=== PATIENT | male | born 1965 | race Caucasian/White ===

== ENCOUNTER → 2020-07-23 | Outpatient (CLI) | payer OTHER, SELFPAY | END | disposition home or self-care (01) | LOC: LABSPEC 15:57 | PROVIDERS: Referring Provider Urology; Visit Provider Urology | DX: Z87.442 Personal history of urinary calculi (principal) | CPT/HCPCS: 82360 ==

== ENCOUNTER → 2020-09-23 15:42 | Outpatient (CLI) | payer OTHER, SELFPAY ==
[2020-09-23 18:39] LABS: Anion Gap 6 (5-15); BUN 11 mg/dL (7-18); BUN/Creat Ratio 14.2 RATIO (10-20); Calcium,Total 9.4 mg/dL (8.5-10.1); Chloride 105 mmol/L (98-107); Creatinine, Serum 0.78 mg/dL (0.70-1.30); EST Glomerular Filtration Rate 111 mL/min (>60); Est Glom Filt Rate - Afr Amer 135 mL/min (>60); Glucose 85 mg/dL (74-106); PSA,Total - Annual Screen 0.67 ng/mL (0.00-4.00); Potassium 3.6 mmol/L (3.5-5.1); Sodium Level 138 mmol/L (136-145)
[2020-09-24 08:36] LABS: PTHIN 75.3 pg/mL (18.4-80.1)
== END ==
PROVIDERS: Referring Provider Urology; Visit Provider Urology
DX: R82.994 Hypercalciuria (principal); Z12.5 Encounter for screening for malignant neoplasm of prostate
CPT/HCPCS: 36415; 80048; 83970; 84153; G0103

== ENCOUNTER → 2024-10-24 | Outpatient (CLI) | payer OTHER, SELFPAY ==
--- NOTE | 2024-10-24 10:52 | RAD_ITS ---
PROCEDURE: ABDOMEN SINGLE VIEW 10/24/2024 REASON FOR EXAM: CALCULUS OF KIDNEY TECHNIQUE: Single view abdomen. 2 total images to include the abdomen and pelvis COMPARISON: None available FINDINGS: A couple of calcific densities are seen over the right and left renal shadows which may represent intrarenal stones. An approximate 4 mm calcification to the right of the L3 transverse process, can not exclude possible right ureteral stone, clinically correlate. Incidental appearing pelvic phleboliths. No gaseous distention of bowel seen. RAD/Abdomen Single View IMPRESSION: A couple of calcific densities are seen over the right and left renal shadows w hich may represent intrarenal stones. An approximate 4 mm calcification to the right of the L3 transverse process, ca n not exclude possible right ureteral stone, clinically correlate. Reading Location: [id number]
== END | disposition home or self-care (01) ==
PROVIDERS: Referring Provider Nurse Practitioner; Visit Provider Nurse Practitioner
DX: N20.0 Calculus of kidney (principal)
CPT/HCPCS: 74018

== ENCOUNTER → 2024-10-25 | Outpatient (CLI) | payer OTHER, SELFPAY ==
--- NOTE | 2024-10-25 07:59 | EKG12_ITS ---
Test Reason : PREOP Blood Pressure : */* mmHG Vent. Rate : 78 BPM Atrial Rate : 78 BPM P-R Int : 150 ms QRS Dur : 90 ms QT Int : 378 ms P-R-T Axes : 31 10 22 degrees QTcB Int : 430 ms Normal sinus rhythm with sinus arrhythmia Normal ECG Confirmed by Scott Cifuentes ([id number]), supervising film or videotape editor TIMA SORIANO ([id number]) on 10/26/2024 9:35:42 AM Referred By: Aaron Santos Confirmed By: Scott Cifuentes
[2024-10-25 09:03] LABS: Hematocrit 44.8 % (40-54); Hemoglobin 15.1 g/dL (13.0-16.5); Mean Corp Hgb Conc 33.7 g/dL (32-36); Mean Corpuscular Hgb 30.4 pg (27.0-32.0); Mean Corpuscular Volume 90.1 fL (80-94); Mean Platelet Vol. 11.4 fl (6.2-12.0); Platelet Count 267 K/mm3 (150-450); RBC Distribution Width CV 13.5 % (11.6-14.6); RBC Distribution Width SD 45.1 fl (35.1-43.9); Red Blood Count 4.97 M/mm3 (4.6-6.2); White Blood Count 12.8 K/mm3 (4.4-11.0)
[2024-10-25 10:04] LABS: Anion Gap 11 (5-15); BUN 16 mg/dL (4-19); BUN/Creat Ratio 12.4 RATIO (10-20); Calcium,Total 9.2 mg/dL (7.6-11.0); Carbon Dioxide 23.9 mmol/L (21.0-32.0); Chloride 101 mmol/L (98-108); Creatinine, Serum 1.25 mg/dL (0.70-1.20); EST Glomerular Filtration Rate 68 (>60); Glucose 101 mg/dL (70-99); Potassium 3.9 mmol/L (3.3-5.1); Sodium Level 136 mmol/L (133-145)
== END | disposition home or self-care (01) ==
PROVIDERS: Referring Provider Urology; Visit Provider Urology
DX: Z01.810 Encounter for preprocedural cardiovascular examination (principal); Z01.812 Encounter for preprocedural laboratory examination
CPT/HCPCS: 36415; 80048; 85027; 93005

== ENCOUNTER → 2025-05-30 | Outpatient (CLI) | payer OTHER, SELFPAY ==
--- NOTE | 2025-05-30 18:05 | CT_ITS ---
PROCEDURE: SOFT TISSUE NECK WITH CONTRAST 05/30/2025 REASON FOR EXAM: LOCALIZED SWELLING, MASS AND LUMP, NECK SWELLING TECHNIQUE: Procedure Code: CTNEW Modality: CT Procedure: SOFT TISSUE NECK WITH CONTRAST CONTRAST: Isovue 370 VOLUME: 80 mL One or more dose reduction techniques were used (e.g., Automated exposure control, adjustment of the mA and/or kV according to patient size, use of iterative reconstruction technique). RADIATION DOSE SUMMARY: CTDlvol: 18.84 mGy DLP: 640.35 mGycm COMPARISON: None FINDINGS: Airway: The palatine tonsils are prominent. The oropharynx, nasopharynx and hypopharynx are otherwise unremarkable. The supraglottic, glottic and visualized subglottic airway is normal. Salivary glands: The major salivary glands are normal. Lymph nodes: No significant lymphadenopathy. Thyroid: Normal in size. Heterogeneous without discrete nodules. Vasculature: There is minimal calcified plaque in both common carotid arteries. The major arterial and venous structures of the neck and skull base are unremarkable. Orbits: Unremarkable. Paranasal sinuses and mastoids: There is nasal septal deviation to the left. 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 There is a small collection of mucus partially obstructing the maxillary ostium on the left. The paranasal sinuses are otherwise clear. The mastoid air cells are clear. The external middle and inner ears appear unremarkable. Lung apices: Normal. Upper mediastinum: Unremarkable. Bones: The skull base and visualized calvarium are normal. There is multilevel degenerative disc disease of the cervical spine. Other: The visualized intracranial contents are unremarkable. CT/Soft Tissue Neck WITH Contrast IMPRESSION: 1. No evidence of abnormal cystic or solid mass or lymphadenopathy. 2. Other findings as noted. Reading Location: [place] [id number]
== END | disposition home or self-care (01) ==
LOC: CT 17:55
PROVIDERS: PCP Family Medicine; Referring Provider Otolaryngology; Visit Provider Otolaryngology
DX: R22.1 Localized swelling, mass and lump, neck (principal)
CPT/HCPCS: 70491; Q9967